=== PATIENT | female | born 1985 | race Caucasian/White ===

== ENCOUNTER 2017-11-19 17:34 | Emergency (ER) | payer OTHER ==
[~2017-11-19] VITALS: Ht 157.5 cm; Wt 89.0 kg
[2017-11-19] MEDS ORDERED: CIPROFLOXACIN H10 ML BOTH EYES (20:39)
[2017-11-19 20:42] VITALS: BP 139/103
== END 2017-11-19 20:42 | disposition home or self-care (01) ==
LOC: EME 17:34
DX: S00.12XA Contusion of left eyelid and periocular area, initial encounter (principal); S00.11XA Contusion of right eyelid and periocular area, initial encounter; S00.83XA Contusion of other part of head, initial encounter; Y09 Assault by unspecified means; G35 Multiple sclerosis; F31.9 Bipolar disorder, unspecified; F32.9 Major depressive disorder, single episode, unspecified; F41.9 Anxiety disorder, unspecified; F17.200 Nicotine dependence, unspecified, uncomplicated
CPT/HCPCS: 70450; 70486; 84702; 99281; 99284